=== PATIENT | male | born 1990 | race Hispanic/Latino ===

== ENCOUNTER 2017-02-11 20:47 | Emergency (ER) | payer SELFPAY ==
[2017-02-11 21:03] VITALS: BP 135/90; PULSE 54; RESP 17; TEMP 98.5; O2SAT 100
[2017-02-11] MEDS ORDERED: DiphenhydrAMINE 50 mg/ml Inj IVP STA (22:26)
[2017-02-11] MEDS ORDERED: Sodium Chloride 0.9% 1,000 ML IV STA (22:26)
[2017-02-11 23:24] LABS: BASO # 0.1 K/uL (0.0-0.2); BASO % 0.6 % (0.0-2.0); HEMATOCRIT 45.9 % (35.0-51.0); LYMPH # 0.6 K/uL (1.0-4.3); LYMPH % 6.5 % (20.0-40.0); MEAN CELL VOLUME 91.3 fl (80.0-94.0); MEAN CORPUSCULAR HEMOGLOBIN 31.4 pg (27.0-31.0); MEAN CORPUSCULAR HGB CONC 34.4 g/dL (33.0-37.0); MEAN PLATELET VOLUME 7.9 fl (7.2-11.7); MONO # 0.3 K/uL (0.0-0.8); MONO % 3.9 % (0.0-10.0); NEUT # 7.9 K/uL (1.8-7.0); NRBC % 0.2 % (0.0-0.0); PLATELET COUNT 266 K/uL (130-400); RED CELL DISTRIBUTION WIDTH 13.1 % (11.5-14.5); WHITE BLOOD COUNT 8.9 K/uL (4.8-10.8)
--- NOTE | 2017-02-11 23:25 | ED PDOC ---
HPI: Abdomen Time Seen by Provider: 02/11/17 22:16 Chief Complaint (Nursing): GI Problem Chief Complaint (Provider): Abdominal pain History Per: Patient History/Exam Limitations: no limitations Onset/Duration Of Symptoms: Days (3) Additional Complaint(s): Patient is a 26 y/o male with a past medical history of gastritis presenting to the emergency department for vomiting and abdominal pain ongoing for three days with associated chills, subjective fever, fatigue, malaise, and loss of appetite. The pain is described as a severe cramping sensation that is located in the mid abdominal region and radiates downwards. Also notes intractable and non-bilious vomiting with occasional blood-tinged sputum and mild lower left back pain. Reports being seen for similar symptoms of the same presentation last year and was ultimately diagnosed with a kidney stone. He has been in pain ever since then but the pain is not as severe. Denies outright blood, diarrhea, urinary symptoms, and other complaints. PCP: none provided Past Medical History Reviewed: Historical Data, Nursing Documentation, Vital Signs Vital Signs: Last Vital Signs Temp 98.5 F 02/11/17 21:00 Pulse 54 L 02/11/17 21:00 Resp 17 02/11/17 21:00 BP 135/90 02/11/17 21:00 Pulse Ox 100 02/11/17 23:33 - Medical History PMH: Anxiety, Gastritis - Surgical History Surgical History: No Surg Hx - Family History Family History: States: Unknown Family Hx - Social History Current smoker - smoking cessation education provided: Yes Ex-Smoker (has not smoked in the last 12 months): No Alcohol: Social Drugs: Cannabis - Home Medications Home Medications: Ambulatory Orders Medication Instructions Recorded Ciprofloxacin HCl [Cipro] 500 mg PO BID #10 tablet 06/22/15 Oxycodone HCl/Acetaminophen 1 - 2 each PO Q6H #30 tablet 06/22/15 [Percocet 5-325 mg Tablet] Tamsulosin [Flomax] 0.4 mg PO DAILY #0 cap 06/22/15 - Allergies Allergies/Adverse Reactions: Allergies Allergy/AdvReac Type Severity Reaction Status Date / Time No Known Allergies Allergy Verified 02/11/17 21:03 Review of Systems ROS Statement: Except As Marked, All Systems Reviewed And Found Negative Constitutional: Positive for: Fever (subjective), Chills, Malaise (and fatigue) Respiratory: Positive for: Sputum (tinged with blood) Gastrointestinal: Positive for: Vomiting (non-bilious, intractable), Abdominal Pain (radiating, mid-region, severe cramping). Negative for: Diarrhea Genitourinary Male: Negative for: Dysuria, Frequency, Hematuria Musculoskeletal: Positive for: Back Pain (left lower) Physical Exam - Reviewed Nursing Documentation Reviewed: Yes Vital Signs Reviewed: Yes - Physical Exam Appears: Positive for: Non-toxic, In Acute Distress Head Exam: Positive for: ATRAUMATIC, NORMOCEPHALIC Skin: Positive for: Warm, Dry Eye Exam: Positive for: EOMI, PERRL ENT: Positive for: Pharynx Is (clear), Other (tacky mucus membranes) Neck: Positive for: Painless ROM, Supple Cardiovascular/Chest: Positive for: Regular Rate, Rhythm, Chest Non Tender. Negative for: Murmur Respiratory: Positive for: Normal Breath Sounds. Negative for: Respiratory Distress Gastrointestinal/Abdominal: Positive for: Bowel Sounds, Soft, Tenderness ( diffuse distractible). Negative for: Mass, Distended, Guarding, Rebound Back: Positive for: Normal Inspection. Negative for: Decreased ROM Extremity: Positive for: Normal ROM. Negative for: Deformity Lymphatic: Negative for: Adenopathy Neurologic/Psych: Positive for: Alert, Mood/Affect (anxious affect). Negative for: Motor/Sensory Deficits - Laboratory Results Result Diagrams: 02/11/17 23:17 02/11/17 23:17 - ECG O2 Sat by Pulse Oximetry: 100 (RA) Pulse Ox Interpretation: Normal Medical Decision Making Medical Decision Making: Time: 22:30 Initial impression: Abdominal pain Differential diagnoses include but are not limited to: gastritis, enteritis, obstruction, ileitis, diverticulitis, colitis, kidney stone Initial plan: Abdominal/pelvic CT scan with IV contrast Labs: CMP, Lactic Acid, Lipase, Magnesium, Phosphorous, CBC Urine Drug Screening ED Urine Dipstick Dextrose 1 L IV Benadryl 25 mg IVP Toradol 15 mg IVP Normal Saline 1 L IV Protonix 40 mg IVP Promethazine 25 mg IV Reevaluation 12a Mildly elevated protein and albumin. No emergently significant lab abnormalities. Scribe Attestation: Documented by Bita Ortega, acting as a scribe for Zo Brandon MD. Provider Scribe Attestation: All medical record entries made by the Scribe were at my direction and personally dictated by me. I have reviewed the chart and agree that the record accurately reflects my personal performance of the history, physical exam, medical decision making, and the department course for this patient. I have also personally directed, reviewed, and agree with the discharge instructions and disposition. Disposition - Clinical Impression Clinical Impression: Abdominal pain - Disposition Disposition: Transfer of Care Disposition Time: 00:00 Condition: STABLE Forms: [employer] (Chinese) Patient Signed Over To: Dante Briggs Handoff Comments: Pending Ct reassessment final er disposition
[2017-02-11 23:30] LABS: ALKALINE PHOSPHATASE 105 U/L (38-126); ALT/SGPT 35 U/L (21-72); AST/SGOT 23 U/L (17-59); BLOOD UREA NITROGEN 15 mg/dl (9-20); CALCIUM 9.7 mg/dL (8.4-10.2); CARBON DIOXIDE 24 mmol/L (22-30); CHLORIDE 103 mmol/L (98-107); GFR AFRICAN-AMERICAN > 60; GLUCOSE,RANDOM 130 mg/dL (75-110); LIPASE 24 U/L (23-300); PHOSPHOROUS 3.7 mg/dl (2.5-4.5); POTASSIUM 4.2 MMOL/L (3.6-5.0); SODIUM 142 mmol/l (132-148); TOTAL PROTEIN 8.4 G/DL (6.3-8.2)
[2017-02-11 23:31] LABS: ALB/GLOB RATIO 1.7 (1.0-2.1)
[2017-02-11] MEDS ORDERED: Iohexol 300 100 ML IJ ONE (23:43)
[2017-02-11] MEDS ORDERED: Sodium Chloride 0.9% 50 ML IV ONE (23:43)
--- NOTE | 2017-02-12 00:16 | ED PDOC ---
- Laboratory Results Result Diagrams: 02/11/17 23:17 02/11/17 23:17 - ECG O2 Sat by Pulse Oximetry: 100 (RA) Pulse Ox Interpretation: Normal Medical Decision Making Medical Decision Makin:00 Patient signed over to me from Dr. Brandon. CT scan and labs pending. 00:30 Abdominal/pelvic CT scan reviewed. Findings noted as follows: FINDINGS: Lower thorax: Calcified granuloma right lower lobe. ABDOMEN: Liver: Unremarkable. No mass. Gallbladder and bile ducts: Unremarkable. No calcified stones. No ductal dilation. Pancreas: Unremarkable. No mass. No ductal dilation. Spleen: Unremarkable. No splenomegaly. Adrenals: Unremarkable. No mass. Kidneys and ureters: Small left renal cysts. No hydronephrosis. Stomach and bowel: Mucosal thickening in the cecal tip may be due to decompressed state or due to a mild colitis. Mucosal thickening in the rectum which may be due to proctitis. No obstruction. Appendix: Normal appendix. PELVIS: Bladder: Bladder wall is mildly prominent in thickness which may be due to its decompressed state or due to cystitis. Reproductive: Unremarkable as visualized. ABDOMEN and PELVIS: Intraperitoneal space: Unremarkable. No free air. No significant fluid collection. Bones/joints: No acute fracture. No dislocation. Soft tissues: Unremarkable. Vasculature: Unremarkable. No abdominal aortic aneurysm. Lymph nodes: Unremarkable. No enlarged lymph nodes. IMPRESSION: 1. Mucosal thickening in the cecal tip may be due to decompressed state or due to a mild colitis. 2. Bladder wall is mildly prominent in thickness which may be due to its decompressed state or due to cystitis. 3. Mucosal thickening in the rectum which may be due to proctitis. Scribe Attestation: Documented by Bita Ortega, acting as a scribe for Dante Briggs MD. Provider Scribe Attestation: All medical record entries made by the Scribe were at my direction and personally dictated by me. I have reviewed the chart and agree that the record accurately reflects my personal performance of the history, physical exam, medical decision making, and the department course for this patient. I have also personally directed, reviewed, and agree with the discharge instructions and disposition. Disposition Doctor Will See Patient In The: Office Counseled Patient/Family Regarding: Studies Performed, Diagnosis, Need For Followup - Clinical Impression Clinical Impression: Abdominal pain, Cannabis hyperemesis syndrome concurrent with and due to cannabis abuse - POA Present On Arrival: None - Disposition Referrals: [facility] [place] [Outside] Disposition: Routine/Home Disposition Time: 00:57 Condition: GOOD Additional Instructions: Stop using cannabis. Follow up with your PCP in 2 -3 days. Prescriptions: Metoclopramide HCl [Reglan] 5 mg PO BID PRN #20 tablet PRN Reason: Nausea/Vomiting Instructions: Cannabis Abuse (ED), Abdominal Pain (ED)
[2017-02-12 00:50] LABS: NEUTROPHIL 85 % (42-75); TOTAL CELLS COUNTED 100
--- NOTE | 2017-02-12 12:13 | CT ---
PROCEDURE: CT Abdomen and Pelvis without intravenous contrast HISTORY: Periumbilical abdominal pain and intractable vomitting COMPARISON: CT of the abdomen and pelvis dated 06/21/2015 TECHNIQUE: Multiple contiguous axial images were performed through the abdomen and pelvis with intravenous contrast. Subsequently, sagittal and coronal reformatted images were obtained. Contrast Dose: 90 cc of Omnipaque 300 intravenous contrast. Radiation dose: Total exam DLP = 247 mGy-cm. This CT exam was performed using one or more of the following dose reduction techniques: Automated exposure control, adjustment of the mA and/or kV according to patient size, and/or use of iterative reconstruction technique. FINDINGS: LOWER THORAX: 2 millimeter nodular density/granuloma at the lateral aspect of the right lung base. LIVER: Unremarkable. No gross lesion or ductal dilatation. GALLBLADDER AND BILE DUCTS: Unremarkable. PANCREAS: Unremarkable. No gross lesion or ductal dilatation. SPLEEN: Unremarkable. Splenule. ADRENALS: Unremarkable. No mass. KIDNEYS AND URETERS: Punctate hypodensities in the upper pole of the left kidney, too small to adequately characterize. VASCULATURE: Unremarkable. No aortic aneurysm. BOWEL: Mucosal thickening in the cecum/ cecal tip which may be secondary to a mild colitis. Appendix is partially imaged, with the visualized portions appearing within normal limits for width. Mucosal thickening of the rectum which may be secondary to a proctitis. Clinical correlation. Under distended and or mildly thickened ascending and proximal transverse colon. Clinical correlation. APPENDIX: Partially imaged. This is best seen on series 3 images 127 thru 135. Visualized portions appear preserved. Adjacent thickening and inflammation at the level of the cecum. PERITONEUM: Unremarkable. No free fluid. No free air. LYMPH NODES: Unremarkable. No enlarged lymph nodes. BLADDER: Underdistention and or mild thickening of the urinary bladder which may be secondary to decompressed state versus mild cystitis. Clinical correlation. REPRODUCTIVE: Unremarkable. BONES: No acute fracture. OTHER FINDINGS: None. IMPRESSION: 1. Mucosal thickening of the cecum/cecal tip which may be secondary to a mild colitis. Clinical correlation. 2. Mucosal thickening of the rectum which may be secondary to a proctitis. Clinical correlation. 3. Under distended and or mildly thickened ascending and proximal transverse colon. Clinical correlation. 4. Visualized portions of the partially visualized appendix appear within normal limits for width. Clinical correlation. Interval follow-up imaging may be helpful if pain persists. 5. Urinary bladder wall is mildly prominent in thickness which may be secondary to a decompressed state or cystitis. Clinical correlation. These findings were preliminarily reported at 12:30 a.m. on 02/12/[address] Guido Izquierdo from [employer].
== END 2017-02-12 01:25 | disposition home or self-care (01) ==
LOC: H.ER 20:47
DX: R10.33 Periumbilical pain (principal); F17.200 Nicotine dependence, unspecified, uncomplicated; Z87.442 Personal history of urinary calculi
CPT/HCPCS: 74177; 80053; 83605; 83690; 83735; 84100; 85025; 96361; 96374; 96375; 99284; C9113; G0480; J1200; J1885; J2550; J7040; J7042; Q9967